=== PATIENT | male | born 1980 | race African-American/Black ===

== ENCOUNTER 2019-12-01 13:58 | Emergency (ER) | payer OTHER, SELFPAY ==
[2019-12-01] MEDS ORDERED: MORPHINE 4 MG/ML SYR ONE ×2 (14:46→16:28)
[2019-12-01] MEDS ORDERED: NA CHLORIDE 0.9% 1,000 ML ONE ×2 (14:46→17:05)
[2019-12-01] MEDS ORDERED: ONDANSETRON 4 MG/2 ML VIAL ONE ×2 (14:46→17:05)
[2019-12-01 14:47] LABS: Absolute Lymphocytes (CBC) 0.7 K/uL (0.7-4.9); Basophils % 0.4 % (0-1.3); Lymphocytes % 7.1 % (15.3-44.8); MPV 10.5 fL (7.6-11.3); RBC Red Blood Cell Count 4.35 M/uL (4.33-5.43)
[2019-12-01 15:06] LABS: ALT/SGPT 30 U/L (12-78); AST/SGOT 25 U/L (15-37); Albumin 3.9 g/dL (3.4-5.0); Alkaline Phosphatase 50 U/L (45-117); BUN Blood Urea Nitrogen 9 mg/dL (7-18); Bicarbonate 29 mmol/L (21-32); Bilirubin Direct 0.1 mg/dL (0-0.2); Bilirubin Total 0.4 mg/dL (0.2-1.0); Glucose Level 108 mg/dL (74-106); Lipase 357 U/L (73-393); Potassium 3.9 mmol/L (3.5-5.1); Protein, Total 8.3 g/dL (6.4-8.2); Sodium Level 137 mmol/L (136-145)
[2019-12-01 15:10] LABS: Blood Morphology Comment NOT SEEN (NOT SEEN); Platelet Estimate ADEQ; Urine White Blood Cell Casts OK
[2019-12-01 15:45] LABS: Urine Blood NEGATIVE (NEG); Urine Glucose NEGATIVE (NEG); Urine Protein NEGATIVE (NEG); Urine Specific Gravity 1.025 (1.005-1.030); Urine pH 7.5 (5.0-7.0)
--- NOTE | 2019-12-01 16:07 | RAD REPORT ---
EXAM DESCRIPTION: CT - Abdomen Pelvis W Contrast - 12/01/2019 3:43 pm CLINICAL HISTORY: ABD PAIN COMPARISON: No comparisons TECHNIQUE: Biphasic, helical CT imaging of the abdomen and pelvis was performed following 100 ml non -ionic IV contrast. No oral contrast was administered. All CT scans are performed using dose optimization technique as appropriate and may include automated exposure control or mA/KV adjustment according to patient size. FINDINGS: No suspicious findings in the lung bases. The liver, spleen, and pancreas show no suspicious findings. Gallbladder and biliary tree are also wi thout suspicious finding. Symmetric renal function is seen with no hydronephrosis or suspicious renal mass. No pyelonephritis o r acute parenchymal process. No bladder abnormalities. No adrenal abnormalities. No gastric dilatation or wall thickening. Small bowel loops are not dilated but there are several dis lia small bowel loops that are fluid filled. Fluid fills the cecum and ascending colon. No colon wall thickening or mass identified. The appendix is borderline in size. Air is present within the lumen. No periappendiceal stranding. Suspicion for appendicitis is low. No free air, free fluid or inflammatory stranding. No hernia, mass or bulky lymphadenopathy. No suspicious bony findings. IMPRESSION: GI findings favor a nonspecific enteritis. The appendix is borderline in size but does have air within the lumen. Suspicion for appendicitis is low.
--- NOTE | 2019-12-01 16:23 | ER ---
Nurse's Notes [facility] Name: Jsoe Sweeney Jr Age: 39 yrs Sex: Male : 1980 Arrival Date: 12/01/2019 Time: 14:06 Bed 20 Private MD: Danilo Farnsworth C Diagnosis: Unspecified abdominal pain;Diarrhea, unspecified Presentation: 11/30 14:16 Chief complaint: Patient states: RLQ abd pain with nausea and diarrhea started today. ll1 Coronavirus screen: Proceed with normal triage. Patient denies a cough. Patient denies shortness of breath or difficulty breathing. Patient denies measured and/or subjective temperature greater than 100.4F prior to today's visit. Patient denies travel on a cruise ship or to a country the [facility] currently lists as an affected area. Patient denies contact with known and/or suspected case of COVID-19. Ebola Screen: Patient denies travel to an Ebola-affected area in the 21 days before illness onset. Initial Sepsis Screen: Does the patient meet any 2 criteria? No. Patient's initial sepsis screen is negative. Does the patient have a suspected source of infection? No. Patient's initial sepsis screen is negative. Risk Assessment: Do you want to hurt yourself or someone else? Patient reports no desire to harm self or others. Onset of symptoms was December 01, 2019. 14:16 Method Of Arrival: Wheelchair ll1 14:16 Acuity: MARIELENA 3 ll1 Historical: - Allergies: 14:18 Sulfa (Sulfonamide Antibiotics); ll1 14:18 michael beans; ll1 - PMHx: 14:18 G6PD deficiency; ll1 - PSHx: 14:18 None; ll1 - Social history:: Smoking status: Patient reports the use of cigarette tobacco products, denies chronic smoking, but will smoke occasionally, Patient uses alcohol, only on a social basis. Patient/guardian denies using street drugs. Screenin:57 Abuse screen: Denies threats or abuse. Nutritional screening: No deficits noted. ah Tuberculosis screening: No symptoms or risk factors identified. Fall Risk None identified. Assessment: 14:35 General: Appears in no apparent distress. uncomfortable, Behavior is cooperative, vc appropriate for age. Pain: Complains of pain in right lower quadrant Pain does not radiate. Pain currently is 8 out of 10 on a pain scale. at worst was 10 out of 10 on a pain scale. Quality of pain is described as dull, shooting, stabbing. Pain: Also complains of nausea. Neuro: Level of Consciousness is awake, alert, obeys commands, Oriented to person, place, time, situation, Appropriate for age. Cardiovascular: Capillary refill < 3 seconds Patient's skin is warm and dry. Respiratory: Airway is patent Respiratory effort is even, unlabored, Respiratory pattern is regular, symmetrical. GI: Abdomen is round Bowel sounds hyperactive in right upper quadrant, left upper quadrant, right lower quadrant and left lower quadrant Abdomen is tender to palpation Guarding noted in right lower quadrant. : No signs and/or symptoms were reported regarding the genitourinary system. EENT: No deficits noted. Derm: Skin is intact, is healthy with good turgor, Skin temperature is warm. Musculoskeletal: Circulation, motion, and sensation intact. Range of motion: intact in all extremities. Vital Signs: 14:15 BP 135 / 72; Pulse 69; Resp 18; Pulse Ox 99% ; ah 14:16 BP 137 / 64; Pulse 67; Resp 17; Temp 98.3; Pulse Ox 100% ; Pain 7/10; ll1 15:15 BP 137 / 69; Pulse 66; Resp 18; Pulse Ox 100% ; ah ED Course: 14:06 Patient arrived in ED. mr 14:06 Danilo Farnsworth MD is Private Physician. mr 14:12 Tor Sullivan, [place] is PHCP. pm1 14:12 Jadiel Barrios MD is Attending Physician. pm1 14:17 Triage completed. ll1 14:18 Arm band placed on Patient placed in an exam room, on a stretcher. ll1 14:35 Ashleigh Correia, RN is Primary Nurse. ah 14:35 Inserted saline lock: 20 gauge in right antecubital area, using aseptic technique. vc Blood collected. 14:45 Radiology exam delayed due to lab results not completed at this time. (BUN/Creatinine). bq 15:43 CT Abd/Pelvis - IV Contrast Only In Process Unspecified. EDMS 16:22 Rashid Queen MD is Referral Physician. pm1 17:30 Patient has correct armband on for positive identification. Placed in gown. Bed in low ah position. Call light in reach. Side rails up X 1. Pulse ox on. NIBP on. 17:30 No provider procedures requiring assistance completed. IV discontinued, intact, ah Pressure dressing applied. Administered Medications: 14:55 Drug: NS 0.9% 1000 ml Route: IV; Rate: 1000 ml; Site: right antecubital; 14:56 Drug: morphine 4 mg Route: IVP; Site: right antecubital; 15:55 Follow up: Response: No adverse reaction 14:56 Drug: Zofran (Ondansetron) 4 mg Route: IVP; Site: right antecubital; 15:56 Follow up: Response: No adverse reaction 16:22 Drug: morphine 4 mg Route: IVP; Site: right antecubital; 17:30 Follow up: Response: No adverse reaction 16:35 Drug: LevaQUIN 500 mg Route: PO; 17:30 Follow up: Response: No adverse reaction 16:35 Drug: Flagyl 500 mg Volume: 100 ml; Route: IVPB; Rate: 200 ml/hr; Infused Over: 30 ah mins; Site: right antecubital; 17:00 Drug: Dilaudid 1 mg Route: IVP; Site: right antecubital; 17:30 Follow up: Response: No adverse reaction 17:00 Drug: Zofran (Ondansetron) 4 mg Route: IVP; Site: right antecubital; 17:30 Follow up: Response: No adverse reaction 17:00 Drug: NS 0.9% 1000 ml Route: IV; Rate: 1 bolus; Site: right antecubital; 17:45 Follow up: Response: No adverse reaction; IV Status: Completed infusion Outcome: 16:22 Discharge ordered by . pm1 17:45 Discharged to home via wheelchair. 17:45 Condition: stable 17:45 Discharge instructions given to patient, Instructed on discharge instructions, follow up and referral plans. medication usage, Demonstrated understanding of instructions, follow-up care, medications, Prescriptions given X 3. 18:38 Patient left the ED. Signatures: Dispatcher [employer] EDSC Zeenat Awan BetTor Verdin, FOLDING MACHINE TENDER FOLDING MACHINE TENDER pm1 Amanda Lara RN RN vc Harris, Amy, RN RN ah Lewis, Lynsay, RN RN ll1
--- NOTE | 2019-12-01 16:23 | EDPHYS ---
Physician Documentation [facility] Name: Jose Sweeney Jr Age: 39 yrs Sex: Male : 1980 Arrival Date: 12/01/2019 Time: 14:06 Bed 20 Private MD: Danilo Farnsworth C ED Physician Jadiel Barrios HPI: 11/30 15:25 This 39 yrs old Black Male presents to ER via Wheelchair with complaints of Abdominal pm1 Pain. 15:25 The patient presents with abdominal pain right lower quadrant. Onset: The pm1 symptoms/episode began/occurred this morning. The symptoms do not radiate. Associated signs and symptoms: Pertinent positives: diarrhea, Pertinent negatives: nausea and vomiting, chest pain, dysuria, fever, shortness of breath. The symptoms are described as sharp. Modifying factors: The symptoms are alleviated by nothing, the symptoms are aggravated by movement, walking. Severity of pain: in the emergency department the pain is actually worse. The patient has not experienced similar symptoms in the past. The patient has not recently seen a physician. Historical: - Allergies: 14:18 Sulfa (Sulfonamide Antibiotics); ll1 14:18 michael beans; ll1 - PMHx: 14:18 G6PD deficiency; ll1 - PSHx: 14:18 None; ll1 - Social history:: Smoking status: Patient reports the use of cigarette tobacco products, denies chronic smoking, but will smoke occasionally, Patient uses alcohol, only on a social basis. Patient/guardian denies using street drugs. ROS: 15:25 Constitutional: Negative for fever, chills, and weight loss, Cardiovascular: Negative pm1 for chest pain, palpitations, and edema, Respiratory: Negative for shortness of breath, cough, wheezing, and pleuritic chest pain. 15:25 Back: Negative for injury and pain, : Negative for injury, bleeding, discharge, and swelling, MS/Extremity: Negative for injury and deformity, Skin: Negative for injury, rash, and discoloration, Neuro: Negative for headache, weakness, numbness, tingling, and seizure. 15:25 Abdomen/GI: Positive for abdominal pain, diarrhea, Negative for nausea and vomiting, constipation. Exam: 15:25 Constitutional: This is a well developed, well nourished patient who is awake, alert, pm1 and in no acute distress. Head/Face: Normocephalic, atraumatic. Chest/axilla: Normal chest wall appearance and motion. Nontender with no deformity. No lesions are appreciated. 15:25 Back: No spinal tenderness. No costovertebral tenderness. Full range of motion. Skin: Warm, dry with normal turgor. Normal color with no rashes, no lesions, and no evidence of cellulitis. MS/ Extremity: Pulses equal, no cyanosis. Neurovascular intact. Full, normal range of motion. 15:25 Cardiovascular: Exam negative for acute changes, Rate: normal, Rhythm: regular, Pulses: no pulse deficits are appreciated. 15:25 Respiratory: Exam negative for acute changes, respiratory distress, shortness of breath. 15:25 Abdomen/GI: Inspection: abdomen appears normal, Palpation: soft, mild abdominal tenderness, in the right lower quadrant, mass, is not appreciated, rebound tenderness, is not appreciated. 15:25 Neuro: Exam negative for acute changes, Orientation: is normal, Motor: is normal, moves all fours. Vital Signs: 14:15 BP 135 / 72; Pulse 69; Resp 18; Pulse Ox 99% ; ah 14:16 BP 137 / 64; Pulse 67; Resp 17; Temp 98.3; Pulse Ox 100% ; Pain 7/10; ll1 15:15 BP 137 / 69; Pulse 66; Resp 18; Pulse Ox 100% ; ah MDM: 14:16 Patient medically screened. adilson 15:27 Data reviewed: vital signs. Data interpreted: Pulse oximetry: on room air is 100 %. pm1 Interpretation: normal. 16:20 Physician consultation: Rashid Queen MD was contacted at 16:20, regarding consult, pm1 patient's condition, Based on labs and CT results recommends discharge the patient home with Levaquin and Flagyl. Follow up in his office this week. 16:21 Counseling: I had a detailed discussion with the patient and/or guardian regarding: the pm1 historical points, exam findings, and any diagnostic results supporting the discharge/admit diagnosis, lab results, radiology results, the need for outpatient follow up, Dr. Queen this week, to return to the emergency department if symptoms worsen or persist or if there are any questions or concerns that arise at home. 11/30 14:29 Order name: Basic Metabolic Panel; Complete Time: 15:09 pm1 11/30 14:29 Order name: CBC with Diff; Complete Time: 15:24 pm1 11/30 14:29 Order name: Creatinine for Radiology; Complete Time: 15:09 pm1 11/30 14:29 Order name: Hepatic Function; Complete Time: 15:09 pm1 11/30 14:29 Order name: Lipase; Complete Time: 15:09 pm1 11/30 14:50 Order name: CBC Smear Scan; Complete Time: 15:24 EDMS 11/30 14:35 Order name: CT Abd/Pelvis - IV Contrast Only; Complete Time: 16:08 pm1 11/30 15:33 Order name: Urine Dipstick--Ancillary (enter results); Complete Time: 15:50 eb 11/30 14:29 Order name: IV Saline Lock; Complete Time: 14:55 pm1 11/30 14:29 Order name: Labs collected and sent; Complete Time: 14:55 pm1 11/30 14:35 Order name: Urine Dipstick-Ancillary (obtain specimen); Complete Time: 16:27 pm1 Administered Medications: 14:55 Drug: NS 0.9% 1000 ml Route: IV; Rate: 1000 ml; Site: right antecubital; ah 14:56 Drug: morphine 4 mg Route: IVP; Site: right antecubital; ah 15:55 Follow up: Response: No adverse reaction ah 14:56 Drug: Zofran (Ondansetron) 4 mg Route: IVP; Site: right antecubital; ah 15:56 Follow up: Response: No adverse reaction ah 16:22 Drug: morphine 4 mg Route: IVP; Site: right antecubital; ah 17:30 Follow up: Response: No adverse reaction ah 16:35 Drug: LevaQUIN 500 mg Route: PO; ah 17:30 Follow up: Response: No adverse reaction ah 16:35 Drug: Flagyl 500 mg Volume: 100 ml; Route: IVPB; Rate: 200 ml/hr; Infused Over: 30 ah mins; Site: right antecubital; 17:00 Drug: Dilaudid 1 mg Route: IVP; Site: right antecubital; ah 17:30 Follow up: Response: No adverse reaction 17:00 Drug: Zofran (Ondansetron) 4 mg Route: IVP; Site: right antecubital; ah 17:30 Follow up: Response: No adverse reaction 17:00 Drug: NS 0.9% 1000 ml Route: IV; Rate: 1 bolus; Site: right antecubital; 17:45 Follow up: Response: No adverse reaction; IV Status: Completed infusion Disposition: 12/01/19 16:22 Discharged to Home. Impression: Unspecified abdominal pain, Diarrhea, unspecified. - Condition is Stable. - Discharge Instructions: Abdominal Pain, Adult, Food Choices to Help Relieve Diarrhea, Adult, Diarrhea, Adult. - Prescriptions for Flagyl 500 mg Oral Tablet - take 1 tablet by ORAL route every 8 hours for 10 days; 30 tablet. Levaquin 500 mg Oral Tablet - take 1 tablet by ORAL route once daily for 10 days; 10 tablet. Tylenol- Codeine #3 300-30 mg Oral Tablet - take 2 tablets by ORAL route every 6 hours As needed; 20 tablet. - Medication Reconciliation Form, Thank You Letter, Antibiotic Education, Prescription Opioid Use form. - Follow up: Emergency Department; When: As needed; Reason: Worsening of condition. Follow up: Rashid Queen MD; When: 2 - 3 days; Reason: Recheck today's complaints, Continuance of care, Re-evaluation by your physician. - Problem is new. - Symptoms have improved. Addendum: 12/03/2019 20:17 Co-signature as Attending Physician, Jadiel Barrios MD I agree with the assessment and c lauren plan of care. Signatures: Dispatcher [employer] EDJadiel Garcia MD MD cha Marinas, Patrick, VACUUM TECHNICIAN VACUUM TECHNICIAN pm1 Ashleigh Correia RN RN Faye Hdz RN RN ll1 Corrections: (The following items were deleted from the chart) 11/30 18:38 16:22 12/01/2019 16:22 Discharged to Home. Impression: Unspecified abdominal pain; Diarrhea, unspecified. Condition is Stable. Forms are Medication Reconciliation Form, Thank You Letter, Antibiotic Education, Prescription Opioid Use. Follow up: Emergency Department; When: As needed; Reason: Worsening of condition. Follow up: Rashid Queen; When: 2 - 3 days; Reason: Recheck today's complaints, Continuance of care, Re-evaluation by your physician. Problem is new. Symptoms have improved. pm1
[2019-12-01] MEDS ORDERED: levoFLOXacin 500 MG TAB ONE (16:36)
[2019-12-01] MEDS ORDERED: METRONIDAZOLE 500mg IVPB 500 MG/100 ML BAG IV ONE (16:36)
[2019-12-01] MEDS ORDERED: HYDROMORPHONE HCL 1 MG/ML INJ ONE (17:05)
[2019-12-01 18:48] VITALS: TEMP 98.3; O2SAT 100
[2019-12-01 18:54] VITALS: BP 137/69
== END 2019-12-01 18:38 | disposition home or self-care (01) ==
LOC: ER 13:58
DX: R19.7 Diarrhea, unspecified (principal); F17.210 Nicotine dependence, cigarettes, uncomplicated; Z88.2 Allergy status to sulfonamides; Z91.018 Allergy to other foods
CPT/HCPCS: 36415; 74177; 80048; 80076; 81003; 83690; 85025; 96361; 96374; 96375; 99284; J1170; J2405; J7030; Q9967

== ENCOUNTER 2021-02-27 09:45 | Inpatient (IN) | payer SELFPAY ==
--- NOTE | 2021-02-27 11:42 | RAD REPORT ---
EXAM DESCRIPTION: Garth Single View02/27/2021 11:18 am CLINICAL HISTORY: Shortness of breath COMPARISON: none FINDINGS: Moderate bilateral pulmonary opacities. The heart is normal size. Scoliosis is present IMPRESSION: Moderate bilateral pulmonary opacities probably pneumonia
[2021-02-27 12:13] LABS: Absolute Lymphocytes (CBC) 0.5 K/uL (0.7-4.9); Basophils % 0.3 % (0-1.3); Hematocrit 35.5 % (39.6-49.0); Lymphocytes % 19.1 % (15.3-44.8); MPV 9.2 fL (7.6-11.3); RBC Red Blood Cell Count 4.11 M/uL (4.33-5.43)
[2021-02-27 12:40] LABS: Protime INR 1.21
[2021-02-27 13:03] LABS: ALT/SGPT 72 U/L (12-78); AST/SGOT 114 U/L (15-37); Albumin 3.6 g/dL (3.4-5.0); Alkaline Phosphatase 48 U/L (45-117); BUN Blood Urea Nitrogen 5 mg/dL (7-18); Bicarbonate 29 mmol/L (21-32); Bilirubin Direct 0.2 mg/dL (0-0.2); Bilirubin Total 0.5 mg/dL (0.2-1.0); Glucose Level 92 mg/dL (74-106); Lipase 82 U/L (73-393); NT PRO-BNP 61 pg/mL (<125); Potassium 3.6 mmol/L (3.5-5.1); Protein, Total 7.9 g/dL (6.4-8.2); Sodium Level 139 mmol/L (136-145); Troponin (Emerg Dept Use Only) < 0.02 ng/mL (0.0-0.045)
[2021-02-27 13:20] LABS: Blood Morphology Comment NOT SEEN (NOT SEEN); Ferritin 3933.5 ng/mL (26-388); Platelet Estimate ADEQ; White Blood Cell Scan OK (OK)
[2021-02-27] MEDS ORDERED: ACETAMINOPHEN 500 MG TAB ONE (13:20)
--- NOTE | 2021-02-27 13:33 | ER ---
Nurse's Notes [facility] Name: Jose Sweeney Jr Age: 40 yrs Sex: Male : 1980 Arrival Date: 02/27/2021 Time: 09:46 Bed 13 Private MD: Diagnosis: Pneumonia due to SARS-associated coronavirus;Acute respiratory failure with hypoxia Presentation: 02/27 10:01 Chief complaint: Patient states: difficult breathing with nausea. Coronavirus screen: aa5 Client denies travel out of the [place] in the last 14 days. Client presents with at least one sign or symptom that may indicate coronavirus-19. Standard/surgical mask placed on the client. Provider contacted for isolation considerations. Ebola Screen: No symptoms or risks identified at this time. Initial Sepsis Screen: Does the patient meet any 2 criteria? No. Patient's initial sepsis screen is negative. Risk Assessment: Do you want to hurt yourself or someone else? Patient reports no desire to harm self or others. 10:01 Method Of Arrival: Ambulatory aa5 10:01 Acuity: MARIELENA 3 aa5 12:56 Initial Sepsis Screen: Does the patient meet any 2 criteria? Does the patient have a ca1 suspected source of infection? No. Patient's initial sepsis screen is negative. Onset of symptoms was February 27, 2021. Triage Assessment: 10:06 General: Appears in no apparent distress. Pain: Denies pain. Respiratory: Reports aa5 shortness of breath at rest. 12:56 Respiratory: Onset: The symptoms/episode began/occurred. ca1 Historical: - Allergies: 12:38 michael beans; ca1 12:38 Sulfa (Sulfonamide Antibiotics); ca1 - PMHx: 12:38 G6PD deficiency; ca1 - Immunization history:: Client reports having NOT received the Covid vaccine. - Social history:: Smoking status: Patient denies any tobacco usage or history of. Screenin:38 Abuse screen: Denies threats or abuse. Denies injuries from another. Nutritional ca1 screening: No deficits noted. Tuberculosis screening: No symptoms or risk factors identified. Fall Risk IV access (20 points). Assessment: 12:37 General: Appears in no apparent distress. uncomfortable, ill, Behavior is anxious. ca1 Pain: Complains of pain in scalp and chest Pain currently is 8 out of 10 on a pain scale. Neuro: Level of Consciousness is awake, alert, obeys commands, Oriented to person, place, time, situation. Cardiovascular: Heart tones S1 S2 present Capillary refill < 3 seconds Patient's skin is warm and dry. Rhythm is regular. Respiratory: Reports shortness of breath cough that is Airway is patent Respiratory effort is even, unlabored, Respiratory pattern is regular, symmetrical, Breath sounds are clear bilaterally. Derm: Skin is intact, is healthy with good turgor, Skin is pink, warm \T\ dry. Musculoskeletal: Circulation, motion, and sensation intact. Capillary refill < 3 seconds. 13:30 Reassessment: Patient appears in no apparent distress at this time. Patient and/or ca1 family updated on plan of care and expected duration. Pain level reassessed. Patient is alert, oriented x 3, equal unlabored respirations, skin warm/dry/pink. 14:30 Reassessment: Patient appears in no apparent distress at this time. Patient and/or ca1 family updated on plan of care and expected duration. Pain level reassessed. Patient is alert, oriented x 3, equal unlabored respirations, skin warm/dry/pink. 15:23 Reassessment: Patient appears in no apparent distress at this time. Patient and/or ca1 family updated on plan of care and expected duration. Pain level reassessed. Patient is alert, oriented x 3, equal unlabored respirations, skin warm/dry/pink. 16:45 Reassessment: Patient appears in no apparent distress at this time. Patient and/or ca1 family updated on plan of care and expected duration. Pain level reassessed. Patient is alert, oriented x 3, equal unlabored respirations, skin warm/dry/pink. Vital Signs: 10:04 BP 127 / 68; Pulse 95; Resp 20; Temp 99.2; Pulse Ox 93% on R/A; aa5 12:30 Pulse Ox 86% on R/A; ca1 12:35 Pulse Ox 95% on 4 lpm NC; ca1 12:35 BP 139 / 85; Pulse 53; Resp 20; Pulse Ox 98% on 4 lpm NC; ca1 13:30 BP 137 / 74; Pulse 90; Resp 20; Pulse Ox 94% on 4 lpm NC; ca1 14:30 BP 135 / 100; Pulse 93; Resp 20 S; Pulse Ox 95% on 4 lpm NC; ca1 15:27 BP 112 / 82; Pulse 91; Resp 20 S; Pulse Ox 99% on R/A; ca1 16:45 BP 126 / 81; Pulse 89; Resp 20 S; Pulse Ox 99% on R/A; ca1 ED Course: 09:46 Patient arrived in ED. as 10:03 Triage completed. aa5 10:37 Jarvis Dawkins PA is PHCP. jr8 10:37 Elmer Quintero MD is Attending Physician. jr8 11:17 CXR XRAY In Process Unspecified. EDMS 12:15 Initial lab(s) drawn, by ED staff, sent to lab. Inserted saline lock: 20 gauge in left ca1 antecubital area, using aseptic technique. Blood collected. 12:26 Vanessa Curtis, RN is Primary Nurse. ca1 12:38 Patient has correct armband on for positive identification. Placed in gown. Bed in low ca1 position. Call light in reach. Side rails up X2. mouse breeder on. Pulse ox on. NIBP on. Warm blanket given. 12:38 No provider procedures requiring assistance completed. ca1 12:56 Arm band placed on. ca1 13:32 Danilo Farnsworth MD is Hospitalizing Provider. jr8 13:36 CT Chest For PE Angio In Process Unspecified. EDMS 16:46 Patient admitted, IV remains in place. ca1 Administered Medications: 13:00 Drug: Tylenol 1000 mg Route: PO; ca1 15:27 Follow up: Response: No adverse reaction; Pain is decreased ca1 17:38 Drug: Ibuprofen 600 mg Route: PO; ca1 22:02 Follow up: Response: No adverse reaction; Pain is decreased ca1 Outcome: 13:32 Decision to Hospitalize by Provider. jr8 22:03 Admitted to ER Hold. Please see [facility] for further documentation. ca1 22:03 Condition: stable 22:03 Instructed on the need for admit. [id number] 04:15 Patient left the ED. bb Signatures: Dispatcher [employer] EDRegine Pickering Brenda RN RN bb Jessica Vieira RN RN aa5 Jarvis Dawkins PA PA jr8 Vanessa Curtis RN RN ca1
--- NOTE | 2021-02-27 13:33 | EDPHYS ---
Physician Documentation [facility] Name: Jose Sweeney Jr Age: 40 yrs Sex: Male : 1980 Arrival Date: 02/27/2021 Time: 09:46 Bed 13 Private MD: ED Physician Elmer Quintero HPI: 02/27 13:22 This 40 yrs old Black Male presents to ER via Ambulatory with complaints of Shortness jr8 Of Breath, Headache. 13:22 The patient has shortness of breath at rest. Onset: The symptoms/episode began/occurred jr8 gradually. Duration: The symptoms are continuous. The patient's shortness of breath is aggravated by light activity, walking. Associated signs and symptoms: Pertinent positives: non-productive cough, headache . Severity of symptoms: At their worst the symptoms were moderate in the emergency department the symptoms are unchanged. The patient has not experienced similar symptoms in the past. The patient has not recently seen a physician. Historical: - Allergies: 12:38 michael beans; ca1 12:38 Sulfa (Sulfonamide Antibiotics); ca1 - PMHx: 12:38 G6PD deficiency; ca1 - Immunization history:: Client reports having NOT received the Covid vaccine. - Social history:: Smoking status: Patient denies any tobacco usage or history of. ROS: 13:22 Eyes: Negative for injury, pain, redness, and discharge, ENT: Negative for injury, jr8 pain, and discharge, Neck: Negative for injury, pain, and swelling, Cardiovascular: Negative for chest pain, palpitations, and edema, Abdomen/GI: Negative for abdominal pain, nausea, vomiting, diarrhea, and constipation, Back: Negative for injury and pain, MS/Extremity: Negative for injury and deformity, Skin: Negative for injury, rash, and discoloration. 13:22 Respiratory: Positive for cough, dyspnea on exertion, shortness of breath. 13:22 Neuro: Positive for headache. Exam: 13:22 Eyes: Pupils equal round and reactive to light, extra-ocular motions intact. Lids and jr8 lashes normal. Conjunctiva and sclera are non-icteric and not injected. Cornea within normal limits. Periorbital areas with no swelling, redness, or edema. ENT: Nares patent. No nasal discharge, no septal abnormalities noted. Tympanic membranes are normal and external auditory canals are clear. Oropharynx with no redness, swelling, or masses, exudates, or evidence of obstruction, uvula midline. Mucous membranes moist. Neck: Trachea midline, no thyromegaly or masses palpated, and no cervical lymphadenopathy. Supple, full range of motion without nuchal rigidity, or vertebral point tenderness. No Meningismus. Cardiovascular: Regular rate and rhythm with a normal S1 and S2. No gallops, murmurs, or rubs. Normal PMI, no JVD. No pulse deficits. Abdomen/GI: Soft, non-tender, with normal bowel sounds. No distension or tympany. No guarding or rebound. No evidence of tenderness throughout. Back: No spinal tenderness. No costovertebral tenderness. Full range of motion. Skin: Warm, dry with normal turgor. Normal color with no rashes, no lesions, and no evidence of cellulitis. MS/ Extremity: Pulses equal, no cyanosis. Neurovascular intact. Full, normal range of motion. Neuro: Awake and alert, GCS 15, oriented to person, place, time, and situation. Cranial nerves II-XII grossly intact. Motor strength 5/5 in all extremities. Sensory grossly intact. Cerebellar exam normal. Normal gait. 13:22 Respiratory: the patient does not display signs of respiratory distress, Respirations: tachypnea, that is mild, Breath sounds: decreased breath sounds, that are mild, are located in both bases. Vital Signs: 10:04 BP 127 / 68; Pulse 95; Resp 20; Temp 99.2; Pulse Ox 93% on R/A; aa5 12:30 Pulse Ox 86% on R/A; ca1 12:35 Pulse Ox 95% on 4 lpm NC; ca1 12:35 BP 139 / 85; Pulse 53; Resp 20; Pulse Ox 98% on 4 lpm NC; ca1 13:30 BP 137 / 74; Pulse 90; Resp 20; Pulse Ox 94% on 4 lpm NC; ca1 14:30 BP 135 / 100; Pulse 93; Resp 20 S; Pulse Ox 95% on 4 lpm NC; ca1 15:27 BP 112 / 82; Pulse 91; Resp 20 S; Pulse Ox 99% on R/A; ca1 16:45 BP 126 / 81; Pulse 89; Resp 20 S; Pulse Ox 99% on R/A; ca1 MDM: 10:42 Patient medically screened. jr 13:22 Data reviewed: vital signs, nurses notes, lab test result(s), EKG, radiologic studies, [facility] CT scan, plain films. Data interpreted: Pulse oximetry: on room air is 90 %. Interpretation: normal. Counseling: I had a detailed discussion with the patient and/or guardian regarding: the historical points, exam findings, and any diagnostic results supporting the discharge/admit diagnosis, lab results, radiology results, the need for further work-up and treatment in the hospital. 02/27 10:11 Order name: COVID-19 : Document "Date of Symptom Onset" if Symptomatic. eb 02/27 10:37 Order name: BMP [facility] 02/27 10:37 Order name: Blood Culture Adult (2) [facility] 02/27 10:37 Order name: C-Reactive Protein; Complete Time: 13:20 [facility] 02/27 10:37 Order name: CBC with Diff; Complete Time: 13:33 [facility] 02/27 10:37 Order name: D-Dimer; Complete Time: 12:44 [facility] 02/27 10:37 Order name: Ferritin; Complete Time: 13:20 [facility] 02/27 10:37 Order name: LFT's; Complete Time: 13:20 [facility] 02/27 10:37 Order name: Lactate; Complete Time: 12:59 [facility] 02/27 10:37 Order name: Lipase; Complete Time: 13:20 8 02/27 10:37 Order name: PT-INR; Complete Time: 12:44 8 02/27 10:37 Order name: Procalcitonin; Complete Time: 14:12 8 02/27 10:37 Order name: Ptt, Activated; Complete Time: 12:44 [facility] 02/27 10:37 Order name: Troponin (emerg Dept Use Only); Complete Time: 13:20 8 02/27 10:37 Order name: CXR XRAY; Complete Time: 11:49 8 02/27 10:37 Order name: EKG; Complete Time: 10:38 8 02/27 10:37 Order name: Cardiac monitoring; Complete Time: 12:55 8 02/27 10:37 Order name: BNP; Complete Time: 13:20 8 02/27 10:38 Order name: Basic Metabolic Panel; Complete Time: 13:20 EDMS 02/27 10:38 Order name: Blood Culture EDMS 02/27 11:35 Order name: SARS-COV-2 RT PCR; Complete Time: 11:49 [facility] 02/27 13:21 Order name: CT Chest For PE Angio; Complete Time: 14:04 [facility] 02/27 13:21 Order name: CBC Smear Scan; Complete Time: 13:33 EDID 02/27 14:07 Order name: CONS Physician Consult [facility] 02/27 16:32 Order name: Urine Dipstick-Ancillary; Complete Time: 16:47 [facility] 02/27 17:59 Order name: Diet Regular; Complete Time: 17:59 eb 02/27 10:37 Order name: Droplet/Contact Precautions; Complete Time: 12:55 [facility] 02/27 10:37 Order name: EKG - Nurse/Tech; Complete Time: 12:55 [facility] 02/27 10:37 Order name: IV Start; Complete Time: 12:55 [facility] 02/27 10:37 Order name: Labs collected and sent; Complete Time: 12:55 [facility] 02/27 10:37 Order name: O2 Per Protocol; Complete Time: 12:55 [facility] 02/27 10:37 Order name: O2 Sat Monitoring; Complete Time: 12:55 [facility] 02/27 10:37 Order name: Urine Dipstick-Ancillary (obtain specimen); Complete Time: 16:30 jr Administered Medications: 13:00 Drug: Tylenol 1000 mg Route: PO; ca1 15:27 Follow up: Response: No adverse reaction; Pain is decreased ca1 17:38 Drug: Ibuprofen 600 mg Route: PO; ca1 22:02 Follow up: Response: No adverse reaction; Pain is decreased ca1 Disposition: 02/28 18:09 Co-signature as Attending Physician, Elmer Quintero MD I agree with the assessment and kdr plan of care. Disposition Summary: 02/27/21 13:32 Hospitalization Ordered Hospitalization Status: Inpatient Admission jr8 Provider: Danilo Farnsworth Condition: Stable alicia Problem: new jr8 Symptoms: have improved jr8 Bed/Room Type: Standard [facility] Location: Telemetry/MedSurg (Inpatient)(02/28/21 02:03) cg Room Assignment: [facility](02/28/21 02:03) cg Diagnosis - Pneumonia due to SARS-associated coronavirus jr8 - Acute respiratory failure with hypoxia jr Forms: - Medication Reconciliation Form jr8 - SBAR form jr8 Signatures: Dispatcher [employer] EDMS Elmer Quintero MD MD kdr Jessica Vieira RN RN aa5 Jarvis Dawkins [place] jr8 Lisa Garcia RN RN cg Vanessa Curtis RN RN ca1 Corrections: (The following items were deleted from the chart) 02/27 10:29 10:11 CORONAVIRUS ordered. EDID EDMS 12:55 10:37 Melgoza ordered. jr8 ca1 21:48 13:32 Telemetry/MedSurg (Inpatient) jr8 cg 21:48 13:32 jr8 cg 02/28 02:03 0806 21:48 [facility] ER HOLD cg cg 02/28 02:03 02/27 21:48 ERHOLD- [facility]
--- NOTE | 2021-02-27 14:01 | RAD REPORT ---
EXAM DESCRIPTION: CT - Chest For Pe Angio - 02/27/2021 1:36 pm CLINICAL HISTORY: Chest pain. DYSPNEA COMPARISON: No comparisons TECHNIQUE: CT angiogram of the pulmonary arteries was performed with MIP. All CT scans are performed using dose optimization technique as appropriate and may include automated exposure control or mA/KV adjustment according to patient size. FINDINGS: No evidence of pulmonary thromboembolism. No acute aortic finding demonstrated. There is quite extensive airspace opacity/ consolidation throughout both lungs. No significant pericardial or pleural fluid. No concerning bony finding. IMPRESSION: No evidence of pulmonary thromboembolism. Quite extensive airspace opacity/consolidation bilaterally. This is likely attributable to underlying COVID-19 infection.
[2021-02-27 16:32] LABS: Urine Blood Trace-intact (Negative); Urine Glucose Negative (Negative); Urine Protein 1+ (Negative)
[2021-02-27 17:07] VITALS: BMI 34.0
[2021-02-27] MEDS ORDERED: IBUPROFEN 200 MG TAB PO ONE (17:57)
[2021-02-27] MEDS ORDERED: IBUPROFEN 400 MG TAB ONE (17:57)
[2021-02-27] MEDS: METHYLPREDNISOLONE 125 MG INJ IV SCH ×2 (18:27→21:00)
[2021-02-27] MEDS ORDERED: REMDESIVIR (EUA) 200 MG in NA CHLORIDE 0.9% 250 ML IV ONE (19:00)
[2021-02-27] MEDS ORDERED: METHYLPREDNISOLONE 40 MG INJ ONE (19:54)
[2021-02-28] MEDS ORDERED: ACETAMINOPHEN 500 MG TAB PO ONE (02:08)
[2021-02-28] MEDS ORDERED: ACETAMINOPHEN 500 MG TAB ONE (02:33)
[2021-02-28] MEDS: METHYLPREDNISOLONE 40 MG INJ IV SCH ×2 (03:23→09:00)
[2021-02-28] MEDS: ASCORBIC ACID 500 MG TABLET PO SCH ×3 (04:01→20:25)
[2021-02-28] MEDS: MELATONIN 5 MG TABLET PO SCH ×2 (04:02→20:25)
[2021-02-28] MEDS: APIXABAN 5 MG TABLET PO SCH ×3 (04:02→20:25)
[2021-02-28] MEDS: FAMOTIDINE 20 MG/2 ML VIAL IV SCH ×3 (04:03→20:25)
[2021-02-28 04:19] LABS: Absolute Lymphocytes (CBC) 0.4 K/uL (0.7-4.9); Basophils % 0.4 % (0-1.3); Hematocrit 37.2 % (39.6-49.0); Lymphocytes % 15.9 % (15.3-44.8); MPV 9.3 fL (7.6-11.3); RBC Red Blood Cell Count 4.28 M/uL (4.33-5.43)
[2021-02-28 05:06] LABS: BUN Blood Urea Nitrogen 9 mg/dL (7-18); Bicarbonate 29 mmol/L (21-32); Ferritin 4245.1 ng/mL (26-388); Glucose Level 141 mg/dL (74-106); HDL Cholesterol 39 mg/dL (40-60); LDL Cholesterol, Calculated 48 (<130); Potassium 3.7 mmol/L (3.5-5.1); Sodium Level 138 mmol/L (136-145)
[2021-02-28 07:55] LABS: Albumin 3.5 g/dL (3.4-5.0); Bilirubin Direct 0.2 mg/dL (0-0.2); Bilirubin Total 0.5 mg/dL (0.2-1.0)
[2021-02-28] MEDS: VITAMIN D 5,000 UNIT CAP PO SCH (08:22)
[2021-02-28] MEDS: METHYLPREDNISOLONE 125 MG INJ IV SCH ×3 (08:24→20:24)
[2021-02-28] MEDS ORDERED: REMDESIVIR (EUA) 100 MG in NA CHLORIDE 0.9% 250 ML IV SCH (09:00)
[2021-02-28] MEDS: ZINC SULFATE 220 MG CAP PO SCH (09:00)
--- NOTE | 2021-02-28 11:27 | P.CNS ---
Date of Consult: 02/28/21 Reason for Consult: REsp failure from COVID Chief Complaint: SOB History of Present Illness: AGe 40 wiht G6PD def aw COVID penumonia, increasign SOB was treated with steroids/ Today alert and feeling better/ CXRY consistent with covid penumonia Allergies Sulfa (Sulfonamide Antibiotics) Allergy (Verified 02/27/21 17:39) Hives/Rash Home Medications: NK [No Home Meds] 02/28/21 - Past Medical/Surgical History -: G6PD deficiency - Social History Smoking Status: Current some day smoker Alcohol use: Yes CD- Drugs: No Caffeine use: No Review of Systems 10-point ROS is otherwise unremarkable Physical Examination Temp Pulse Resp BP Pulse Ox 98.6 F 83 28 H 134/79 95 02/28/21 08:00 02/28/21 08:00 02/28/21 08:00 02/28/21 08:00 02/28/21 08:00 General: Alert, In no apparent distress, Oriented x3, Cooperative Laboratory Data (last 24 hrs) 02/27/21 11:50: PT 14.0 H, INR 1.21, APTT 34.7 02/27/21 11:50: WBC 2.60 L, Hgb 11.9 L, Hct 35.5 L, Plt Count 144 L 02/27/21 11:50: Sodium 139, Potassium 3.6, BUN 5 L, Creatinine 0.79, Glucose 92, Total Bilirubin 0.5, AST 114 H, ALT 72, Alkaline Phosphatase 48, Lipase 82 - Problems (1) COVID-19 Current Visit: Yes Status: Acute Plan: Age 40 aW COVID penumonia Doign well/ CT reviewed. On steroids and Barcitnib/ Not sure about interaction of ivermectin so will avoid for now/ Started on Barcitinig today/ pt will not qualify for Barcitinib. DC 2 days
[2021-02-28] MEDS: ASPIRIN EC 81 MG TAB PO SCH (12:08)
--- NOTE | 2021-02-28 13:01 | RAD REPORT ---
EXAM DESCRIPTION: RAD - Chest Single View - 02/28/2021 12:20 pm CLINICAL HISTORY: Pneumonia COMPARISON: Chest Single View dated 02/27/2021 FINDINGS: Widespread bilateral airspace disease which is grossly similar to 02/27/2021 The heart siz e is within normal limits.No acute osseous abnormality. No significant pleural effusions or pneumotho rax. IMPRESSION: Widespread airspace disease consistent with multifocal pneumonia that is unchanged.
[2021-02-28] MEDS: REMDESIVIR (EUA) 100 MG in NA CHLORIDE 0.9% 250 ML IV SCH (16:32)
[2021-02-28] MEDS ORDERED: AZITHROMYCIN 500 MG INJ IVPB ONE (18:23)
[2021-02-28] MEDS: AZITHROMYCIN IV 500 MG in NA CHLORIDE 0.9% 250 ML IVPB ONE ×2 (18:29→18:30)
[2021-02-28] MEDS ORDERED: NA CHLORIDE 0.9% 250 ML ONE (18:33)
--- NOTE | 2021-02-28 19:56 | HP ---
Date of Admission: 02/27/2021 Chief Complaint: Shortness of breath. History Of Present Illness: This is a 40-year-old male patient, who started to have symptoms of feve r, cough about a week ago, and he went to Hospital in [place] where he was diagnosed as having COVID -19 infection and was discharged to go home with azithromycin. The patient was taking this medicatio n as prescribed. The patient has not received any vaccination for COVID-19 so far. He contacted my office on , which is day before yesterday and requested appointment. I had not seen him for last 7 years. The patient was evaluated via TeleVisit day before yesterday and decision was made to go ahead and start him on oral steroid and I gave him appropriate instructions to go to emergency sidney m if he starts to have shortness of breath feeling or oxygen saturation drops less than 93% or other appropriate instructions given to him, when to go to emergency room. With that, he ended up in the e mergency room last night with shortness of breath problem. He is also coughing up some colored mucus as he reports today and says he has pain in his chest when he takes a deep breath. He has had some diarrhea with this illness. When I saw him this morning, he was not in any respiratory distress. He has required oxygen per nasal cannula around 4 L/minute, maintaining adequate oxygenation. Allergies: SULFA CAUSING SHORTNESS OF BREATH AND FEVER. Medications: Azithromycin and prednisone, which were prescribed, but he has not had opportunity to s tart that medication yet. Review of Systems: Respiratory: As mentioned above. Constitutional: As mentioned above. All other systems reviewed and negative. Past Medical History: Significant for G6PD deficiency, mild anemia with hemoglobin around 12.4, and leukocytopenia with WBC count around 4.2, this was 7 years ago. Past Surgical History: Negative. Family History: Father with hypertension, diabetes, hyperlipidemia. Social History: Negative for smoking or alcohol use. Physical Examination: Vital Signs: Temperature 98.6, pulse 83, respiratory rate 28, blood pressure 134/79, oxygen saturati on 95% on 4 L nasal cannula oxygen. When he came in yesterday, his oxygen saturation in the emergenc y room was as low as 86% on room air. General: Awake, alert, oriented, not in distress. HEENT: Head atraumatic, normocephalic. Conjunctivae nonerythematous. Sclerae white. Mouth, no thr ush or edema noted. Ears/Nose, no mass, lesion, discharge noted. Neck: Supple. No JVD, lymph nodes, bruit, thyromegaly noted. Lungs: Bilateral good equal air entry. Clear to auscultation. No rhonchi. No rales. Heart: Normal heart sounds. No murmur or gallop. Abdomen: Soft. Bowel sounds normal. No guarding, rigidity, tenderness, mass, hepatosplenomegaly, d istention, or bruit noted. Extremities: No leg edema. No calf tenderness. Skin: No rash, ulcer, cellulitis. Lymphatics: No lymph node enlargement in neck, supraclavicular, infraclavicular region. Neuro: No focal neurological deficit. Chest: Unremarkable. External Genitalia: Deferred. Rectal: Deferred. Laboratory Data: Yesterday, white count 2.6, hemoglobin 11.9, platelets 144. This morning, white co unt 2.6, hemoglobin 12.4, platelets 157. INR 1.21 with D-dimer 1249. Sodium 139 yesterday with pota ssium 3.6, chloride 103, bicarb 29, BUN 5, creatinine 0.79, glucose 92, lactic acid 0.8, lipase 82, f erritin 3933, procalcitonin less than 0.05, AST 114, ALT 72, alkaline phosphatase 48, troponin less t jeffries 0.02, CRP 54. This morning, CRP 67.6, ferritin 4245, AST 182, ALT 125, alkaline phosphatase 60, sodium 138, potassium 3.7, chloride 101, bicarb 29, BUN 9, creatinine 0.71, glucose 141. COVID-[address] positive. Urinalysis showed blood trace, 1+ protein. Chest x-ray showing moderate bilateral pulm onary opacities. CAT scan of the chest per PE protocol negative for pulmonary embolism and it shows extensive airspace opacity in both lungs. Impression: 1.COVID-19 infection. 2.COVID-19 pneumonia. 3.Acute respiratory failure with hypoxia. 4.Pxubmvk-0-gdxjblxxi dehydrogenase deficiency. 5.Leukocytopenia. 6.Anemia, unspecified. 7.Abnormal liver function tests. Plan: We will go ahead and admit the patient to hospital for further evaluation and management of th is problem. The patient is appropriate for inpatient and is expected to spend 2 midnights in the [facility] pital. We will continue oxygen supplemental therapy, continue IV steroid, monitor his labs and chest x-ray, and anticoagulation therapy with Eliquis was started. Details were discussed with Dr. Carol Ann maza from Pulmonary and he was consulted for further management. We will start him on some empiric ant ibiotics. ENRRIQUE/MODL Voice ID: [id number]
[2021-02-28] MEDS: CEFTRIAXONE/SWI 1gm 1 GM/10 ML SYR IV SCH (20:24)
[2021-03-01 07:59] LABS: ALT/SGPT 139 U/L (12-78); AST/SGOT 137 U/L (15-37); Albumin 3.1 g/dL (3.4-5.0); Alkaline Phosphatase 50 U/L (45-117); BUN Blood Urea Nitrogen 14 mg/dL (7-18); Bicarbonate 31 mmol/L (21-32); Bilirubin Direct 0.2 mg/dL (0-0.2); Bilirubin Total 0.6 mg/dL (0.2-1.0); Glucose Level 142 mg/dL (74-106); Potassium 3.7 mmol/L (3.5-5.1); Protein, Total 7.1 g/dL (6.4-8.2); Sodium Level 141 mmol/L (136-145)
--- NOTE | 2021-03-01 08:04 | EKG ---
Test Date: 2021-02-27 Test Time: 12:47:46 Oncology Patient Navigator: MANDO MEASUREMENT RESULTS: Intervals: Rate: 88 NE: 158 QRSD: 90 QT: 350 QTc: 423 [place]: P: 61 NE: 158 QRS: 34 T: -13 INTERPRETIVE STATEMENTS: Normal sinus rhythm T wave abnormality, consider inferior ischemia Abnormal ECG No previous ECG available for comparison Electronically Signed On 03-01-21 08:00:41 CDT by Michael Chin
--- NOTE | 2021-03-01 08:06 | RAD REPORT ---
EXAM DESCRIPTION: RAD - Chest Single View - 03/01/2021 5:48 am CLINICAL HISTORY: penumonia COMPARISON: Chest Single View dated 02/28/2021; Chest Single View dated 02/27/2021 FINDINGS: Similar widespread bilateral airspace disease compared with 02/28/2021. The heart size is within normal limits.No acute osseous abnormality. No significant pleural effusions or pneumothorax. IMPRESSION: No significant change compared 02/28/2021 with similar findings compatible with multifoc al pneumonia.
[2021-03-01] MEDS: ZINC SULFATE 220 MG CAP PO SCH (09:00)
[2021-03-01] MEDS: METHYLPREDNISOLONE 125 MG INJ IV SCH ×3 (09:16→20:03)
[2021-03-01] MEDS: ASPIRIN EC 81 MG TAB PO SCH (09:17)
[2021-03-01] MEDS: AZITHROMYCIN IV 250 MG in NA CHLORIDE 0.9% 250 ML IVPB SCH (09:17)
[2021-03-01] MEDS: ASCORBIC ACID 500 MG TABLET PO SCH ×2 (09:17→20:02)
[2021-03-01] MEDS: CEFTRIAXONE/SWI 1gm 1 GM/10 ML SYR IV SCH ×2 (09:17→20:04)
[2021-03-01] MEDS: APIXABAN 5 MG TABLET PO SCH ×2 (09:17→20:02)
[2021-03-01] MEDS: FAMOTIDINE 20 MG/2 ML VIAL IV SCH ×2 (09:17→20:03)
[2021-03-01] MEDS: VITAMIN D 5,000 UNIT CAP PO SCH (09:17)
[2021-03-01] MEDS: REMDESIVIR (EUA) 100 MG in NA CHLORIDE 0.9% 250 ML IV SCH (09:18)
[2021-03-01] MEDS ORDERED: REMDESIVIR (EUA) 100 MG in NA CHLORIDE 0.9% 250 ML IV SCH (13:30)
--- NOTE | 2021-03-01 14:23 | P.PN ---
Subjective Date of Service: 03/01/21 Chief Complaint: COVID penumnia Subjective: Improving (Doign well on minimal Oxygen ambualting/) Review of Systems Respiratory: Shortness of Breath Physical Examination - Vital Signs Temperature: 99.2 F Blood Pressure: 132/76 Pulse: 80 Respirations: 28 Pulse Ox (%): 92 - Physical Exam General: Alert, In no apparent distress, Oriented x3, Cooperative Assessment & Plan - Problems (Diagnosis) (1) COVID-19 Current Visit: Yes Status: Acute Plan: Doign well/ poss DC home after completing Remdesmir/ Abnormal LFT cont to minitor/ Hoem O2 ordered/ Will not qualify for Barcitinib
--- NOTE | 2021-03-01 19:27 | PN ---
Date of Progress Note: 03/01/2021 Subjective: The patient was evaluated today via tele visit that included audio and video component. He was sitting at the bedside when I evaluated him and he was not on any oxygen, as his condition si nce I saw him yesterday has improved and he is maintaining adequate oxygen saturation without any sup plemental oxygen as the day progressed today. By the time I saw him, his condition was improving. H micha also overall feels better as he reported. Denies any new complaints. Laboratory Data: Sodium 141, potassium 3.7, chloride 103, bicarb 31, BUN 14, creatinine 0.65, glucos e 142. His AST 137 today, yesterday was 182; ALT 139 today, yesterday it was 125; alkaline phosphata se 50 today, yesterday it was 60. CRP 24.7 today, yesterday it was 67.6. Chest x-ray shows no swenson e in bilateral pulmonary opacities. Impression: 1.COVID-19 infection. 2.COVID-19 pneumonia. 3.Acute respiratory failure with hypoxia. 4.G6PD deficiency. Plan: We will go ahead and continue current medications. The patient has responded very well to cur rent treatment. We will continue his antibiotics, which is ceftriaxone and azithromycin. Continue E liquis. Deep breathing exercise was advised to the patient. Continue current IV steroid, which is S darron-Medrol 80 mg 3 times a day and remdesivir. ENRRIQUE/MODL Voice ID: [id number] Report ID: [id number]
[2021-03-01] MEDS: MELATONIN 5 MG TABLET PO SCH (20:01)
[2021-03-01] MEDS: ACETAMINOPHEN 325 MG TABLET PO PRN (23:43)
[2021-03-02 07:43] LABS: Absolute Lymphocytes (CBC) 0.7 K/uL (0.7-4.9); Basophils % 0.1 % (0-1.3); Hematocrit 31.6 % (39.6-49.0); MPV 9.1 fL (7.6-11.3); RBC Red Blood Cell Count 3.65 M/uL (4.33-5.43)
--- NOTE | 2021-03-02 08:02 | RAD REPORT ---
EXAM DESCRIPTION: Garth Single View03/02/2021 7:08 am CLINICAL HISTORY: Cough COMPARISON: March 01 FINDINGS: Mild improvement in diffuse bilateral pulmonary opacities. Heart is borderline enlarged IMPRESSION: Mild improvement in bilateral pulmonary opacities probably pneumonia
[2021-03-02 08:14] LABS: ALT/SGPT 184 U/L (12-78); AST/SGOT 124 U/L (15-37); Albumin 3.2 g/dL (3.4-5.0); Alkaline Phosphatase 50 U/L (45-117); BUN Blood Urea Nitrogen 17 mg/dL (7-18); Bicarbonate 30 mmol/L (21-32); Bilirubin Direct 0.2 mg/dL (0-0.2); Bilirubin Total 0.5 mg/dL (0.2-1.0); Glucose Level 121 mg/dL (74-106); Potassium 3.8 mmol/L (3.5-5.1); Protein, Total 7.1 g/dL (6.4-8.2); Sodium Level 141 mmol/L (136-145)
[2021-03-02] MEDS: METHYLPREDNISOLONE 125 MG INJ IV SCH ×3 (09:25→19:57)
[2021-03-02] MEDS: ASCORBIC ACID 500 MG TABLET PO SCH ×2 (09:26→19:56)
[2021-03-02] MEDS: FAMOTIDINE 20 MG/2 ML VIAL IV SCH ×2 (09:26→19:57)
[2021-03-02] MEDS: VITAMIN D 5,000 UNIT CAP PO SCH (09:26)
[2021-03-02] MEDS: ZINC SULFATE 220 MG CAP PO SCH (09:26)
[2021-03-02] MEDS: ASPIRIN EC 81 MG TAB PO SCH (09:26)
[2021-03-02] MEDS: REMDESIVIR (EUA) 100 MG in NA CHLORIDE 0.9% 250 ML IV SCH (09:27)
[2021-03-02] MEDS: CEFTRIAXONE/SWI 1gm 1 GM/10 ML SYR IV SCH ×2 (09:27→19:58)
[2021-03-02] MEDS: AZITHROMYCIN IV 250 MG in NA CHLORIDE 0.9% 250 ML IVPB SCH (09:29)
[2021-03-02] MEDS: APIXABAN 5 MG TABLET PO SCH ×2 (10:45→19:56)
[2021-03-02] MEDS: MELATONIN 5 MG TABLET PO SCH (19:56)
[2021-03-02] MEDS: ACETAMINOPHEN 325 MG TABLET PO PRN (22:54)
[2021-03-03 00:22] VITALS: O2SAT 96
[2021-03-03 07:43] LABS: ALT/SGPT 169 U/L (12-78); AST/SGOT 68 U/L (15-37); Alkaline Phosphatase 47 U/L (45-117); BUN Blood Urea Nitrogen 15 mg/dL (7-18); Bicarbonate 27 mmol/L (21-32); Bilirubin Direct 0.1 mg/dL (0-0.2); Bilirubin Total 0.4 mg/dL (0.2-1.0); Glucose Level 157 mg/dL (74-106); Potassium 3.9 mmol/L (3.5-5.1); Protein, Total 6.6 g/dL (6.4-8.2); Sodium Level 141 mmol/L (136-145)
[2021-03-03] MEDS: FAMOTIDINE 20 MG/2 ML VIAL IV SCH (08:11)
[2021-03-03] MEDS: ASPIRIN EC 81 MG TAB PO SCH (08:11)
[2021-03-03] MEDS: METHYLPREDNISOLONE 125 MG INJ IV SCH (08:12)
[2021-03-03] MEDS: APIXABAN 5 MG TABLET PO SCH (08:12)
[2021-03-03] MEDS: ZINC SULFATE 220 MG CAP PO SCH (08:12)
[2021-03-03] MEDS: VITAMIN D 5,000 UNIT CAP PO SCH (08:13)
[2021-03-03] MEDS: ASCORBIC ACID 500 MG TABLET PO SCH (08:13)
[2021-03-03] MEDS: AZITHROMYCIN IV 250 MG in NA CHLORIDE 0.9% 250 ML IVPB SCH (08:13)
[2021-03-03] MEDS: CEFTRIAXONE/SWI 1gm 1 GM/10 ML SYR IV SCH (08:14)
[2021-03-03] MEDS: REMDESIVIR (EUA) 100 MG in NA CHLORIDE 0.9% 250 ML IV SCH (09:45)
--- NOTE | 2021-03-03 10:40 | PN ---
Date of Progress Note: 03/02/2021 Subjective: The patient was evaluated via tele visit this morning that included audio and video comp onent. He was happy smiling, feeling a lot better. Has not used any oxygen since I evaluated him ye sterday morning. Denies any complaints. His pain with breathing has improved. He is still coughing up some mucus, but that actually has improved as well. No new complaints reported. Vital signs rev iewed. He is maintaining normal level of oxygenation on room air. Laboratory Data: White count 7.3, hemoglobin 10.5, platelets 244. Sodium 141, potassium 3.8, chlori de 106, bicarb 30, BUN 17, creatinine 0.69, glucose 121, AST 124, ALT 184. CRP 12.3. Chest x-ray sh ows improvement in infiltrate compared to yesterday's chest x-ray. Impression: 1.COVID-19 infection. 2.COVID-19 pneumonia. 3.Acute respiratory failure with hypoxia. 4.G6PD deficiency. 5.Anemia, unspecified. Plan: We will continue current antibiotic, IV steroid, remdesivir, and I will see him tomorrow for f jovitaup. Details were discussed with Dr. Prakash and our plan is to possibly discharge him to go ho sd tomorrow depending on his condition and details were discussed with the patient as well. ENRRIQUE/MODL Voice ID: [id number] Report ID: [id number]
[2021-03-03 10:45] VITALS: BP 129/78; TEMP 98.1
--- NOTE | 2021-03-04 11:06 | DS ---
Date of Discharge: 03/03/2021 Disposition: Discharged to go home. Discharge Medications And Instructions: 1.Continue prednisone as prescribed prior to this admission. 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 daily for 5 days. 3.Take following kcaj-tiu-zoazhzk medications; vitamin C 500 mg to 1000 mg daily, zinc 50 mg to 100 mg daily, vitamin D3 2000 units daily. 4.Do not take any aspirin, Aleve, Motrin type of medications. 5.May use Tylenol 500 mg 4 times a day as needed. 6.Follow up at my office next week. Call office for appointment. Hospital Course: This is a 40-year-old male patient, admitted to the hospital with shortness of guan[place] th complaint. The patient was admitted to the hospital with COVID-19 infection and COVID-19 pneumoni a causing shortness of breath problem. He had acute respiratory failure with hypoxia. He did not re quire ventilator support, but he did require supplemental oxygen per nasal cannula. He was treated w ith IV steroid and remdesivir. He also was coughing up some colored mucus, so antibiotic azithromyci n and ceftriaxone was started. With all this combination therapy, his condition started to improve. He did not require any more supplemental oxygen and has not required any oxygen replacement therapy for over 48 hours prior to the admission and hemodynamically he is stable. He is feeling much better and has no complaints. Dr. Prakash was consulted from Pulmonary Service. The patient also receive d Eliquis during this hospitalization and we will continue that for 1 month. He was prescribed predn isone day prior to admission to the hospital and he that prescription at home so he will use that as prescribed. Final Diagnoses: 1.COVID-19 infection. 2.COVID-19 pneumonia. 3.Acute respiratory failure with hypoxia. 4.G6PD deficiency. 5.Leukocytopenia. 6.Anemia, unspecified. 7.Abnormal liver function tests. Laboratory Data: Labs done during this hospitalization; initial white count was 2.6, hemoglobin 11.9 , and a platelet count of 144 upon admission. Last CBC from yesterday; white count 7.3, hemoglobin 1 0.5, and a platelet count of 244. His last chemistry today; AST 68, ALT 169, and CRP 8.2. His highe st CRP was 67.60 and this was on 02/28/2021. His highest LFTs were on 02/28/2021. AST was 182 and h ighest ALT was 184, which was on 03/02/2021. ENRRIQUE/MODL Voice ID: [id number] Report ID: [id number]
== END 2021-03-03 11:45 | disposition home or self-care (01) | DRG 177 ==
LOC: ER 09:45 → ERHOLD 14:06 → 4TH 02-28 03:00
PROVIDERS: ADMIT Internal Medicine; ATTEND Internal Medicine
PROC: XW033E5 Introduction of Remdesivir Anti-infective into Peripheral Vein, Percutaneous Approach, New Technology Group 5 (ICD-10-PCS; principal; 2021-02-27)
DX: U07.1 COVID-19 (principal); J12.82 Pneumonia due to coronavirus disease 2019; J96.01 Acute respiratory failure with hypoxia; D55.0 Anemia due to glucose-6-phosphate dehydrogenase [G6PD] deficiency; D72.819 Decreased white blood cell count, unspecified; R94.5 Abnormal results of liver function studies; Z88.1 Allergy status to other antibiotic agents; Z91.018 Allergy to other foods; Z79.52 Long term (current) use of systemic steroids; Z79.899 Other long term (current) drug therapy
CPT/HCPCS: 36415; 71045; 71275; 80048; 80061; 80076; 81003; 82728; 83605; 83690; 83880; 84145; 84484; 85025; 85379; 85610; 85730; 86140; 87040; 93005; 94760; 99285; J0456; J0696; J2920; J2930; J7050; Q9967; U0003